=== PATIENT | male | born 2000 | race Two or more races ===

== ENCOUNTER 2022-10-09 03:51 | Emergency (ER) | payer OTHER ==
[~2022-10-09] VITALS: Ht 180.3 cm; Wt 77.0 kg
[2022-10-09] MEDS ORDERED: MORPHINE SULFATE 4 MG/ML SYR/VIAL IV ONE ×2 (04:00→06:30)
[2022-10-09] MEDS ORDERED: ONDANSETRON HCL 4 MG/2 ML VIAL IV ONE ×2 (04:00→06:30)
[2022-10-09 05:31] LABS: Basophils # (auto) 0 10 ^3/uL (0-0.2); Basophils % (auto) 0.1 % (0.0-2.0); Eosinophils # (auto) 0 10 ^3/uL (0-0.8); Eosinophils % (auto) 0.2 % (0.0-7.0); Hematocrit 41.2 % (41.0-53.0); Hemoglobin 14.1 g/dL (13.5-17.5); Lymphocytes # (auto) 1.3 10 ^3/uL (0.4-5.4); Lymphocytes % (auto) 12.4 % (10.0-50.0); Mean Corpuscular Hemoglobin 30.4 pg (28.0-32.0); Mean Corpuscular Hgb Conc. 34.2 g/dL (32.0-36.0); Monocytes % (auto) 9.7 % (0.0-12.0); Neutrophils # (auto) 8.2 10 ^3/uL (1.6-8.6); Neutrophils % (auto) 77.6 % (37.0-80.0); Red Blood Cells 4.63 10^6/uL (4.5-5.90); Red Cell Distribution Width 14.1 % (11.8-14.3); White Blood Cell 10.6 10^3/uL (4.4-10.8)
[2022-10-09 05:37] LABS: INR 1.05 (0.9-1.15); Partial Thromboplastin Time 23.7 sec (24.6-33.4)
[2022-10-09 05:43] LABS: Potassium 4.7 mmol/L (3.5-5.1)
[2022-10-09 05:50] LABS: Albumin 4.4 g/dL (3.4-5.0); BUN/Creatinine Ratio 18.5; Bilirubin, Total 1.3 mg/dL (0.2-1.0); Calcium 9.2 mg/dL (8.5-10.1); Total Protein 7.6 g/dL (6.4-8.2)
[2022-10-09 08:00] VITALS: BP 120/68
== END 2022-10-09 08:31 | disposition short-term general hospital (02) ==
LOC: ER 03:51
DX: S22.42XA Multiple fractures of ribs, left side, initial encounter for closed fracture (principal); S22.41XA Multiple fractures of ribs, right side, initial encounter for closed fracture; S32.018A Other fracture of first lumbar vertebra, initial encounter for closed fracture; S52.91XA Unspecified fracture of right forearm, initial encounter for closed fracture; S62.632A Displaced fracture of distal phalanx of right middle finger, initial encounter for closed fracture; S62.624A Displaced fracture of middle phalanx of right ring finger, initial encounter for closed fracture; S81.812A Laceration without foreign body, left lower leg, initial encounter; R07.89 Other chest pain; W18.39XA Other fall on same level, initial encounter; Y93.89 Activity, other specified; Y92.89 Other specified places as the place of occurrence of the external cause; Y99.8 Other external cause status
CPT/HCPCS: 12004; 36415; 70450; 70486; 71250; 72125; 73090; 73130; 73700; 74176; 80053; 83690; 84484; 85025; 85610; 85730; 96374; 96375; 99285; J2001; J2270; J2405